=== PATIENT | male | born 1975 | race Caucasian/White ===

== ENCOUNTER 2025-02-04 13:41 | Emergency (ER) | payer OTHER, SELFPAY ==
[2025-02-04] VITALS (11 sets, daily range): BP systolic 121–182; BP diastolic 74–106; PULSE 93–115; RESP 15–18; TEMP 36.7; O2SAT 86–98
--- NOTE | ~2025-02-04 | XR_ITS ---
EXAMINATION: XR chest 2V DATE: 02/04/2025 16:32 INDICATION: Syncope TECHNIQUE: Frontal and lateral views of the chest were obtained. COMPARISON: None. FINDINGS: The lungs are clear. Heart size normal. Bones and upper abdomen within normal limits. IMPRESSION: 1. 2 view chest x-ray within normal limits. Reviewed, dictated and finalized at location A. GENCY ROOM ORDERLY
--- NOTE | ~2025-02-04 | CT_ITS ---
EXAMINATION: CT facial & cervical spine wo COMPARISON: None HISTORY: trauma TECHNIQUE: Axial images were obtained without IV contrast. Sagittal, coronal reconstruction images were obtained from the axial views. CT scan performed using dose optimization techniques including the following automated exposure control; adjustment of mA and/or kV; use of iterative reconstruction technique. Automatic exposure control was used to reduce radiation dose. Permanent radiation dose record is archived to PACS. FINDINGS: CT facial bones: The nasal bones are intact. Anterior maxillary sinus arenas and zygomatic arches are intact. Temporomandibular joints are intact. Orbital floors and medial orbits are intact. There is moderate to severe ethmoidal and maxillary sinusitis with moderate left frontal sinusitis and severe left sphenoid sinusitis with underlying polyp formation suspected. Visualized brain parenchyma is unremarkable. There is no retrobulbar hemorrhage or preseptal soft tissue swelling. The remaining soft tissues appear unremarkable. CT cervical spine: The lung apices and soft tissues appear unremarkable. No fracture or subluxation. Moderate loss of disc height at C3-4, C4-5 and C5-6 with calcification of the posterior longitudinal ligament at C4 producing moderate to severe canal and foraminal stenosis, outpatient MRI is recommended IMPRESSION: No acute fracture. Reviewed, dictated and finalized at location P. TRY PACKER IMPRESSION: No acute fracture.
--- NOTE | ~2025-02-04 | CT_ITS ---
EXAMINATION: CT brain wo con COMPARISON: None HISTORY: trauma TECHNIQUE: Axial images were obtained through the brain without IV contrast. CT scan performed using dose optimization techniques including the following automated exposure control; adjustment of mA and/or kV; use of iterative reconstruction technique. Automatic exposure control was used to reduce radiation dose. Permanent radiation dose record is archived to PACS. FINDINGS: No acute infarct or parenchymal hemorrhage. No abnormal mass or mass effect. No midline shift. No extra-axial fluid collections. No hydrocephalus. . Mastoid air cells unremarkable. Moderate ethmoidal and maxillary sinusitis with underlying polyp formation suspected. No acute fracture. No significant facial or scalp soft tissue swelling evident. No radiopaque foreign body is seen. Impression: 1.No acute intracranial abnormality. Reviewed, dictated and finalized at location P. S ANALYST Impression: 1.No acute intracranial abnormality.
--- NOTE | 2025-02-04 15:38 | ECG_ITS ---
Test Date: 2025-02-04 16:11:17 Measurements Intervals [place] Rate: 90 P: 48 OK: 160 QRS: 65 QRSD: 84 T: 73 QT: 353 QTc: 434 Interpretive Statements SINUS RHYTHM DELAYED R-WAVE PROGRESSION ABNORMAL ECG No previous ECG available for comparison Electronically Signed On 02-04-2025 17:08:23 COMMODITY INDUSTRY ANALYST by Demarco Gill M.D.
[2025-02-04 16:10] LABS: Hematocrit 46.2 % (42.0-52.0); Hemoglobin 15.6 g/dL (14.0-18.0); Immature Granulocyte Percent A 0.4 % (0-0.5); Lymphocytes Absolute Auto 3.01 K/mm3 (0.9-3.2); Mean Corpuscular HGB Conc 33.8 g/dl (32-36); Mean Corpuscular Hemoglobin 30.1 pg (26-34); Mean Corpuscular Volume 89.2 fl (80-100); Nucleated Red Blood Cells Absolute Auto 0.000 K/mm3 (0.0-0.012); Nucleated Red Blood Cells Perc 0.0 % (0.0-0.2); Platelet Count Result 274 k/mm3 (150-375); Red Blood Count 5.18 M/mm3 (4.6-6.20); White Blood Count 12.0 K/mm3 (4.5-10.0)
--- NOTE | 2025-02-04 16:22 | ED.GENADULT ---
HPI - General Adult General Chief complaint: Head Injury Stated complaint: head injury last night Time Seen by Provider: 02/04/25 15:44 History of Present Illness HPI narrative: 49-year-old male present to the emergency department for evaluation after having a syncopal so. Patient reports that he was smoking a cigarette the ground when he coughed and choked and went down to the floor. Patient suspects is only out for a very brief period of time. Patient has had this happened before when he choked while eating. Patient denies any prior cardiac history. Patient states he has been eating and drinking well with no recent nausea or vomiting. Patient denies any other significant past medical history. Patient does have an abrasion to the left side of his nose and a skin tear behind his right ear. patient did complain of some neck tightness and head pain. Related Data Allergies Allergy/AdvReac Type Severity Reaction Status Date / Time No Known Allergies Allergy Verified 02/04/25 16:45 Review of Systems Review of Systems: All systems reviewed & are unremarkable except as noted in HPI and below Exam Narrative: APPEARANCE: Well appearing, no pain, no distress, well-nourished. HEAD: normocephalic, atraumatic. EYES: PERRLA/EOMI, conjunctivae clear. NOSE: Normal no drainage EARS:TMS clear with good light reflex. THROAT: Pharynx clear, no exudate. NECK: Supple. No adenopathy, no masses. RESPIRATORY: Airway patent, respirations nonlabored. Clear to auscultation bilaterally, no rales, rhonchi, wheezing. CARDIOVASCULAR: Regular rate and rhythm without murmurs rubs or gallops. ABDOMINAL: Soft, nontender, nondistended, normal bowel sounds MUSCULOSKELETAL: Moves all extremities. Strength/ROM intact, No edema, No calf tenderness. NEURO: Alert. Cranial nerves II through XII intact. Good gait. Good coordination SKIN: Abrasion to her nose and abrasion to ear Course Vital Signs Vital signs: Vital Signs Temperature 98.1 F 02/04/25 13:55 Pulse Rate 115 H 02/04/25 13:55 Respiratory Rate 15 02/04/25 13:55 Blood Pressure 182/104 H 02/04/25 13:55 Pulse Oximetry 98 02/04/25 13:55 Temperature 98.1 F 02/04/25 13:55 Pulse Rate 95 02/04/25 17:59 Respiratory Rate 18 02/04/25 17:59 Blood Pressure 156/76 H 02/04/25 17:59 Pulse Oximetry 96 02/04/25 17:59 Medical Decision Making [facility] Narrative Medical decision making narrative: 49-year-old male present to the emergency department for evaluation after having a syncopal episode after a coughing spell. Do suspect vagal syncope. Patient is currently afebrile but does have a leukocytosis 12.0 hemoglobin of 15.6. Patient had no associated chest pain with this. Patient had normal EKG with normal sinus rhythm. No acute abnormalities on his CMP. Head CT facial CT and neck CT were negative for acute abnormality. Chest x-ray shows no acute cardiopulmonary abnormality. Patient was orthostatic negative. Patient was treated with a L of IV fluids. Patient was offered admission for further syncope workup patient declined. Patient prefers to have outpatient follow-up. Patient was educated on reasons to return to the emergency department. Differential Diagnosis Differential Diagnosis: Subdural hematoma, subarachnoid hemorrhage, cervical spine fracture, facial fracture, cardiac syncope, vasovagal syncope Vital Signs Vital Signs: Vital Signs Temperature 98.1 F 02/04/25 13:55 Pulse Rate 115 H 02/04/25 13:55 Respiratory Rate 15 02/04/25 13:55 Blood Pressure 182/104 H 02/04/25 13:55 Pulse Oximetry 98 02/04/25 13:55 Temperature 98.1 F 02/04/25 13:55 Pulse Rate 95 02/04/25 17:59 Respiratory Rate 18 02/04/25 17:59 Blood Pressure 156/76 H 02/04/25 17:59 Pulse Oximetry 96 02/04/25 17:59 Lab Data Lab results reviewed: Yes I reviewed the patient's lab results. 02/04/25 16:03 02/04/25 16:03 Labs: Lab Results 02/04/25 Range/Units 16:03 WBC 12.0 H (4.5-10.0) K/mm3 RBC 5.18 (4.6-6.20) M/mm3 Hgb 15.6 (14.0-18.0) g/dL Hct 46.2 (42.0-52.0) % MCV 89.2 (80-100) fl MCH 30.1 (26-34) pg MCHC 33.8 (32-36) g/dl RDW 13.1 (11.5-14.5) % Plt Count 274 (150-375) k/mm3 MPV 9.9 (7.4-10.4) fl Immature Gran % (Auto) 0.4 (0-0.5) % Neut % (Auto) 65.1 (45.5-73.1) % Lymph % (Auto) 25.0 (18.3-44.2) % [place] % (Auto) 6.5 (2.6-8.5) % Eos % (Auto) 2.5 (0-4.4) % Baso % (Auto) 0.5 (0.2-1.2) % Lymph # (Auto) 3.01 (0.9-3.2) K/mm3 [place]ward # (Auto) 0.8 H (0.1-0.6) K/mm3 Eos # (Auto) 0.3 (0-0.3) K/mm3 Baso # (Auto) 0.1 (0.0-0.1) K/mm3 Abs Immat Gran (auto) 0.05 H (0.00-0.031) K/mm3 Absolute Neuts (auto) 7.8 H (1.3-6.7) K/mm3 Absolute Nucleated RBC 0.000 (0.0-0.012) K/mm3 Nucleated RBC % 0.0 (0.0-0.2) % Sodium 138 (137-145) mmol/L Potassium 3.8 (3.4-5.0) mmol/L Chloride 106 (98-107) mmol/L Carbon Dioxide 21 L (22-30) mmol/L Anion Gap 11 (4-12) mmol/L BUN 19 (9-20) mg/dL Creatinine 0.95 (0.7-1.3) mg/dL Estim Creat Clear Calc 114 ml/min Estimated GFR > 60 (59 - ) Glucose 123 H (65-110) mg/dL Calcium 9.0 (8.4-10.2) mg/dL Total Bilirubin 0.5 (0.2-1.3) mg/dL AST 29 (17-59) U/L ALT 38 (6-50) U/L Alkaline Phosphatase 94 (38-126) U/L Total Protein 8.4 H (6.3-8.2) g/dL Albumin 4.5 (3.5-5.1) g/dL Imaging Data Radiologist's impression: Impressions Chest X-Ray 02/04/25 16:34 IMPRESSION: 1. 2 view chest x-ray within normal limits. Head CT 02/04/25 16:45 Impression: 1.No acute intracranial abnormality. Head/Cervical Spine/Facial Bones CT 02/04/25 16:46 IMPRESSION: No acute fracture. Discharge Plan Discharge Clinical Impression: Closed head injury, Syncope and collapse Patient Disposition: Home Condition: Stable Instructions: Antibiotic Form, Syncope (DC), Head Injury (ED) Additional Instructions: Tylenol and ibuprofen for pain control. Flexeril for muscle spasm. Have close follow-up with your primary care physician for additional outpatient testing potentially including a Holter monitor, cardiac echo and stress test. If you have any worsening symptoms please call or return to the emergency department. Patient Language: [place] Prescriptions: New cyclobenzaprine 10 mg tablet 10 mg PO BID PRN (Reason: muscle spasm) Qty: 14 0RF Follow-up/Referrals: PHYSICIAN,NIGHT SUPERVISOR [Primary Care Provider, Internal Medicine]
[2025-02-04 16:25] LABS: Alanine Aminotransferase 38 U/L (6-50); Albumin Level 4.5 g/dL (3.5-5.1); Alkaline Phosphatase 94 U/L (38-126); Anion Gap 11 mmol/L (4-12); Aspartate Amino Transferase 29 U/L (17-59); Bilirubin,Total 0.5 mg/dL (0.2-1.3); Blood Urea Nitrogen 19 mg/dL (9-20); Calcium 9.0 mg/dL (8.4-10.2); Carbon Dioxide 21 mmol/L (22-30); Chloride 106 mmol/L (98-107); Estimated CRCL calculation 114 ml/min; Estimated Glomerular Filt Rate > 60; Glucose 123 mg/dL (65-110); Potassium 3.8 mmol/L (3.4-5.0); Sodium 138 mmol/L (137-145); Total Protein 8.4 g/dL (6.3-8.2)
[2025-02-04] MEDS: LACTATED RINGERS 1,000 ML 999 ML IV CONT (16:53)
[2025-02-04] MEDS: KETOROLAC 30 MG/ML VIAL (*BKC) IV PUSH (17:38)
--- OUTSIDE RECORDS SUMMARY | 2025-02-04 23:47 | XMS_ITS | Clinical Summary ---
Author Organization [facility] [place] [address] [place] [address] [address] [place] [address] Care Team Providers Care Breading Machine Tender Name Role Phone Wilma Lynch NP Primary Care Provider [phone] Allergies No known active allergies Medications benzonatate (TESSALON) 200 mg capsuleIndicati ons:Acute cough Take 1 capsule (200 mg total) by mouth 3 (three) times a day as needed for cough keep tessalon out of reach of children, especially children under the age of 10, due to possible serious risk such as if ingested by children under the age of 10. 30 capsule 5 Active Active Problems Problem Noted Date Diagnosed Date Elevated blood-pressure read ing, without diagnosis of hypertension 03/29/2023 Assessment & Plan (04/04/2023 7:42 AM CASTING OPERATOR): I asked him to monitor his blood pressure at home. We talked about having him sign up for [employer] so he can send me readings from home. Discussed what a normal blood pressure is. Patient wants to work on diet and exercise at this time. ECG 12 lead Date/Time: 04/04/2023 7:39 AM Performed by: Wilma Lynch NP Authorized by: Wilma Lynch NP Comparison: not compared with previous ECG Previous ECG: no previous ECG available Rhythm: sinus rhythm Rate: normal QRS axis: normal Conduction: conduction normal ST Segments: ST segments normal T Waves: T waves normal T elevation: V1 and V2 (nonspecific) Clinical impression: normal ECG Annual physical exam 03/29/2023 Assessment & Plan (03/29/2023 3:14 PM CASTING OPERATOR): Patient and I discussed the folllowing: -Healthy, low fat diet. Avoiding junk food/fast food. -30 minutes of exercise most days of the week. Increase to 45 minutes for weight loss. -Colonoscopy at age 49 and further colonoscopys pending GI recs. Recommended -Influenza vaccine every year up to date and documented -F/u in 1 year for Annual PE or sooner if needed Immunizations Immunization Administration Dates Next Due Influenza, Quadrivalent, Pema l Culture-based MDCK, Preservative Free, Antibiotic Free, Intramuscular 02/13/2023 Tdap 03/29/2023 Family History Medical History Relation Name Comments Multiple myeloma Brother 1 No Known Problems Brother 2 Hearing loss Father Hypertension Mother No Known Problems Sister Relation Name Status Comments Brother 1 Alive Brother 2 Alive Father Alive Mother Alive Sister Alive Social History Tobacco Use Types Packs/Day Years Used Date Smoking Tobacco: Former Cigarettes 0.8 24 Tobacco Cessation:Counseling Given: Not Answered PHQ-2 Answer Date Recorded PHQ-2 Total Score (If total score is 3 or more points, staff should administer the PHQ-9) 0 03/29/2023 Sex and Gender Information Value Date Recorded Sex Assigned at Not on file Legal Sex Male 9:15 AM CASTING OPERATOR Gender Identity Not on file Sexual Orientation Not on file Last Filed Vital Signs Vital Sign Reading Time Taken Comments Blood Pressure 148/68 07/09/2024 8:05 AM CDT Pulse 78 07/09/2024 8:21 AM CDT Temperature 36.3 C (97.3 F) 07/09/2024 8:05 AM CDT Respiratory Rate 20 07/09/2024 8:05 AM CDT Oxygen Saturation 98% 07/09/2024 8:21 AM CDT Inhaled Oxygen Concentration - - Weight 129.3 kg (285 lb) 07/09/2024 8:05 AM CDT Height 182.9 cm (6') 07/09/2024 8:05 AM CDT Body Mass Index 38.65 07/09/2024 8:05 AM CDT Plan of Treatment Health Maintenance Due Date Last Done Comments Colon Cancer Screening-Colonoscopy 1974 Hepatitis C Screening 1974 Prostate Cancer Screening-PSA 1974 Hepatitis B Screening 02/28/1992 Zoster Vaccine (1 of 2) 02/28/2024 Depression Screening 03/29/2024 03/29/2023 Regular Well Visit/Exam 18-64 03/29/2024 03/29/2023 Covid-19 Vaccine (4 - 2024-2 6 season) 2024 02/24/2021, 07/07/2020, 06/16/2020 Influenza Vaccine (#1) 2024 02/13/2023 DTaP/Tdap/Td Vaccine (2 - Td or Tdap) 03/29/2033 03/29/2023 Pneumococcal vaccine <65 Aged Out No longer eligible based on patient's age to complete this topic Insurance [facility] CHOICE PLUS Care Teams Breading Machine Tender Relationship Specialty Start Date End Date Wilma Lynch NP PCP - General Family Medicine 03/29/23
== END 2025-02-04 18:03 | disposition home or self-care (01) ==
PROVIDERS: Student in an Organized Health Care Education/Training Program; Emergency Provider Emergency Medicine
DX: R55 Syncope and collapse (principal); S00.31XA Abrasion of nose, initial encounter; S00.411A Abrasion of right ear, initial encounter; F17.210 Nicotine dependence, cigarettes, uncomplicated; W18.39XA Other fall on same level, initial encounter
CPT/HCPCS: 36415; 70450; 70486; 71046; 72125; 80053; 85025; 93005; 96361; 96374; 99284; J1885; J7120; L0140